=== PATIENT | male | born 2000 | race Caucasian/White ===

== ENCOUNTER → 2024-10-21 | Outpatient (CLI) | payer BC ==
--- NOTE | 2024-10-21 09:36 | US ---
EXAMINATION TYPE: US venous doppler duplex UE LT DATE OF EXAM: 10/21/2024 COMPARISON: NONE CLINICAL INDICATION: Male, 24 years old with history of M79.622 PAIN IN LT ARM; Pain in left arm. TECHNIQUE: Grayscale, color Doppler and spectral Doppler imaging of the upper extremity. Grayscale, color doppler, spectral doppler imaging performed of the deep veins of the upper extremities. SIDE PERFORMED: Left FINDINGS: Left Arm: Negative for DVT IMPRESSION: No evidence for DVT left upper extremity. [facility], , 10/21/2024 9:34 AM
== END | disposition home or self-care (01) ==
LOC: RADUSWWP 08:46
PROVIDERS: ATTEND Family Medicine
DX: M79.622 Pain in left upper arm (principal)